=== PATIENT | male | born 1960 | race Hispanic/Latino ===

== ENCOUNTER 2017-07-12 08:48 | Emergency (ER) | payer OTHER ==
[2017-07-12 08:52] VITALS: BP 144/96; PULSE 104; TEMP 97; O2SAT 98; BMI 24.3
--- NOTE | 2017-07-12 09:51 | ED PDOC ---
HPI: Abdomen Chief Complaint (Nursing): GI Problem Chief Complaint (Provider): GI Problem History Per: Patient History/Exam Limitations: no limitations Onset/Duration Of Symptoms: Hrs (this mornning) Current Symptoms Are (Timing): Gone Now Location Of Pain/Discomfort: Other (lower) Quality Of Discomfort: Cramping Associated Symptoms: Nausea, Diarrhea, Other (dizziness) Additional Complaint(s): Toño Barcenas is a 56 year old male, with no significant past medical history, who presents to the emergency department complaining of lower abdominal cramps associated with diarrhea, nausea and dizziness onset since this morning. Patient reports symptoms have resolved. He is able to tolerate PO fluids and food. He denies any nasal congestion, fever, cough or other medical complaints. PMD: JAILENE, Dr. Wu Past Medical History Reviewed: Historical Data, Nursing Documentation, Vital Signs Vital Signs: Last Vital Signs Temp 97 F L 07/12/17 08:51 Pulse 104 H 07/12/17 08:51 Resp BP 144/96 H 07/12/17 08:51 Pulse Ox 98 07/12/17 09:55 - Medical History PMH: No Chronic Diseases - Surgical History Surgical History: Tonsillectomy - Family History Family History: States: Unknown Family Hx - Home Medications Home Medications: Ambulatory Orders Medication Instructions Recorded No Known Home Med 12/21/15 - Allergies Allergies/Adverse Reactions: Allergies Allergy/AdvReac Type Severity Reaction Status Date / Time Penicillins Allergy SWELLING Verified 07/12/17 09:07 Review of Systems ROS Statement: Except As Marked, All Systems Reviewed And Found Negative Constitutional: Negative for: Fever ENT: Negative for: Nose Congestion Respiratory: Negative for: Cough Gastrointestinal: Positive for: Nausea, Abdominal Pain (lower cramps), Diarrhea Neurological: Positive for: Dizziness Physical Exam - Reviewed Nursing Documentation Reviewed: Yes Vital Signs Reviewed: Yes - Physical Exam Appears: Positive for: Non-toxic Head Exam: Positive for: ATRAUMATIC, NORMAL INSPECTION, NORMOCEPHALIC Skin: Positive for: Normal Color, Warm, Dry Eye Exam: Positive for: Normal appearance, EOMI, PERRL ENT: Positive for: Normal ENT Inspection Neck: Positive for: Painless ROM, Supple Cardiovascular/Chest: Positive for: Regular Rate, Rhythm. Negative for: Murmur Respiratory: Positive for: Normal Breath Sounds. Negative for: Respiratory Distress Gastrointestinal/Abdominal: Positive for: Normal Exam, Soft. Negative for: Tenderness, Guarding, Rebound Back: Positive for: Normal Inspection. Negative for: L CVA Tenderness, R CVA Tenderness, Vertebral Tenderness Extremity: Positive for: Normal ROM. Negative for: Deformity, Swelling Neurologic/Psych: Positive for: Alert, Oriented - ECG O2 Sat by Pulse Oximetry: 98 (RA) Pulse Ox Interpretation: Normal Medical Decision Making Medical Decision Making: Initial Impression: Gastroenteritis, viral syndrome Initial Plan: :40 --Patient is not feeling dizzy or lightheaded at the moment. Offered hydration of IV fluids but states he can tolerate PO and wants to go home During orthostatics exam patient felt a little lightheaded. The RN and I offered him fluids IV but he did not want them. He says he can take fluids by mouth and will get the fluids at the store. He was advised to return to the ED if his symptoms worsen or any other concern. He was advised to make sure he follows up with his PMD in 1-2days. Scribe Attestation: Documented by Mayo Dorantes, acting as a scribe for Dariel Sinclair MD Provider Scribe Attestation: All medical record entries made by the Scribe were at my direction and personally dictated by me. I have reviewed the chart and agree that the record accurately reflects my personal performance of the history, physical exam, medical decision making, and the department course for this patient. I have also personally directed, reviewed, and agree with the discharge instructions and disposition. Disposition - Clinical Impression Clinical Impression: Gastroenteritis, Viral syndrome - Patient ED Disposition Is Patient to be Admitted: No - Disposition Disposition: Routine/Home Disposition Time: 09:40 Condition: IMPROVED Additional Instructions: Mr Barcenas, thank you for letting us take care of you today. Your provider was Dr. Sinclair. You were treated for Viral Syndrome, Gastroenteritis. The emergency medical care you received today was directed at your acute symptoms. If you were prescribed any medication, please fill it and take as directed. It may take several days for your symptoms to resolve. Return to the Emergency Department if your symptoms worsen, do not improve, or if you have any other problems. Please contact your doctor or call one of the physicians/clinics you have been referred to that are listed on the Patient Visit Information form that is included in your discharge packet. Bring any paperwork you were given at discharge with you along with any medications you are taking to your follow up visit. Our treatment cannot replace ongoing medical care by a primary care provider (PCP) outside of the emergency department. Thank you for allowing the [facility] team to be part of your care today. If you had an X-Ray or CT scan: A Radiologist will review the ED reading if any change in treatment is needed we will contact you. If you had a blood, urine, or wound culture: It will take several days for the results, if any change in treatment is needed we will contact you. If you had an STI test: It will take 48 hours for the results. Please call after 1 week if you have not heard back. Forms: [employer] (Spanish), [facility] ED School/Work Excuse
== END 2017-07-12 11:22 | disposition home or self-care (01) ==
LOC: H.ER 08:48
DX: K52.9 Noninfective gastroenteritis and colitis, unspecified (principal); B34.9 Viral infection, unspecified; Z88.0 Allergy status to penicillin